=== PATIENT | male | born 1950 | race Caucasian/White ===

== ENCOUNTER 2018-06-08 12:51 | Emergency (ER) | payer MEDICARE ==
[2018-06-08] MEDS ORDERED: Metoprolol Tartrate 5 MG/5 ML VIAL ONE ×2 (13:02→13:18)
[2018-06-08] MEDS ORDERED: Aspirin Chewable 81 MG TAB ONE (13:02)
[2018-06-08 13:16] LABS: #Basophils 0.1 thou/uL (0.0-0.2); #Eosinphils 0.2 thou/uL (0.0-0.7); #Lymphocytes 1.9 thou/uL (1.20-3.40); #Monocytes 0.5 thou/uL (0.11-0.59); #Neutrophils 5.9 thou/uL (1.40-6.50); %Eosinophils 2.1 % (0.0-10.0); %Lymphocytes 22.2 % (21.0-51.0); %Monocytes 5.9 % (0.0-10.0); %Neutrophils 68.8 % (42.0-75.0); Hemoglobin 15.1 g/dL (14.0-18.0); Mean Corpuscular HGB CONC 33.6 g/dL (32.0-36.0); Mean Corpuscular Volume 89.3 fL (78.0-98.0); Mean Platelet Volume 7.6 fL (7.4-10.4); Platelet Count 262 thou/uL (130-400); RBC Distribution Width 11.6 % (11.5-14.5); Red Blood Cell (RBC) Count 5.04 mill/uL (4.70-6.10); White Blood Cell (WBC) Count 8.6 thou/uL (4.8-10.8)
[2018-06-08] MEDS ORDERED: Sodium Chloride 0.9% 1,000 ML ONE (13:23)
[2018-06-08 13:29] LABS: PTT 27.7 SEC (22.9-36.1); Prothrombin Time 13.3 SEC (12.0-14.7)
[2018-06-08 13:31] LABS: ALT (SGPT) 17 U/L (8-55); AST (SGOT) 19 U/L (5-34); Albumin 4.1 g/dL (3.4-4.8); Alkaline Phosphatase 75 U/L (40-150); Anion Gap 19 mmol/L (10-20); BUN (Urea Nitrogen) 17 mg/dL (8.4-25.7); Bilirubin, Total 0.6 mg/dL (0.2-1.2); CK (CPK) 136 U/L (30-200); Calc. Creatinine Clearance 0 mL/min (70-130); Calcium 9.6 mg/dL (7.8-10.44); Carbon Dioxide 18 mmol/L (23-31); Chloride 102 mmol/L (98-107); Estimated GFR-MDRD 64; Globulin 2.6 g/dL (2.4-3.5); Glucose 204 mg/dL (80-115); Magnesium 2.1 mg/dL (1.6-2.6); Potassium 4.2 mmol/L (3.5-5.1); Protein, Total 6.7 g/dL (5.8-8.1); Sodium 135 mmol/L (136-145)
[2018-06-08 13:32] LABS: CKMB 2.4 ng/mL (0-6.6)
--- NOTE | 2018-06-08 13:45 | RAD ---
PORTABLE CHEST ONE VIEW: 06/08/2018 1:12 p.m. HISTORY: Chest pain. FINDINGS: The heart size is borderline. There is elevation of the right hemidiaphragm. No focal areas of cons olidation, pneumothoraces, chandler pulmonary edema, or pleural effusions area seen. IMPRESSION: No radiographic evidence of acute cardiopulmonary process. POS: C
== END 2018-06-08 15:23 | disposition short-term general hospital (02) ==
LOC: MADERS 12:51
DX: I20.9 Angina pectoris, unspecified (principal); I47.1 Supraventricular tachycardia; I10 Essential (primary) hypertension
CPT/HCPCS: 71045; 80053; 82550; 82553; 83735; 83880; 84484; 85025; 85610; 85730; 93005; 94760; 96374; J7050

== ENCOUNTER 2019-04-20 10:01 | Outpatient (CLI) | payer MEDICARE ==
[2019-04-20 10:28] LABS: Cardiac Risk 5.5 (Less than 4.5)
[2019-04-20 17:58] LABS: Albumin (w/Testosterone Panel) 4.3 g/dL
[2019-04-20 18:24] LABS: Sex Hormone Binding Globulin 35.6 nmol/L (11-78); Testosterone, Free 81.9 pg/mL (47-244); Testosterone, Total 419.3 ng/dL (221-716)
== END 2019-04-20 10:02 | disposition home or self-care (01) ==
LOC: MADLABBHPM 10:01
PROVIDERS: ATTEND Family Medicine
DX: E78.2 Mixed hyperlipidemia (principal); R53.83 Other fatigue
CPT/HCPCS: 36415; 80061; 84270; 84403

== ENCOUNTER 2021-10-29 16:47 | Outpatient (CLI) | payer MEDICARE ==
[2021-10-29 17:24] LABS: #Basophils 0.1 thou/uL (0.0-0.2); #Eosinphils 0.4 thou/uL (0.0-0.7); #Lymphocytes 2.2 thou/uL (1.20-3.40); #Monocytes 0.9 thou/uL (0.11-0.59); %Eosinophils 3.9 % (0.0-10.0); %Lymphocytes 23.3 % (21.0-51.0); %Monocytes 9.1 % (0.0-10.0); %Neutrophils 62.7 % (42.0-75.0); Hemoglobin 15.4 g/dL (14.0-18.0); Mean Corpuscular HGB CONC 31.8 g/dL (32.0-36.0); Mean Corpuscular Hemoglobin 29.5 pg (27.0-31.0); Mean Corpuscular Volume 92.8 fL (78.0-98.0); Mean Platelet Volume 9.3 fL (7.4-10.4); Platelet Count 282 thou/uL (130-400); RBC Distribution Width 12.4 % (11.5-14.5); Red Blood Cell (RBC) Count 5.21 mill/uL (4.70-6.10); White Blood Cell (WBC) Count 9.6 thou/uL (4.8-10.8)
== END 2021-10-29 16:48 | disposition home or self-care (01) ==
LOC: MADLABSP 16:47
PROVIDERS: ATTEND Family Medicine
DX: I10 Essential (primary) hypertension (principal)
CPT/HCPCS: 36415; 85025

== ENCOUNTER 2022-03-23 14:48 | Outpatient (CLI) | payer MEDICARE | END 2022-03-23 14:49 | disposition home or self-care (01) | LOC: MADRAD 14:48 | PROVIDERS: ATTEND Internal Medicine | DX: I10 Essential (primary) hypertension (principal) | CPT/HCPCS: 71046 ==

== ENCOUNTER 2022-06-23 12:32 | Outpatient (CLI) | payer MEDICARE | END 2022-06-23 12:33 | disposition home or self-care (01) | LOC: MADRAD 12:32 | PROVIDERS: ATTEND Nurse Practitioner Family | DX: U07.1 COVID-19 (principal); F32.A Depression, unspecified; I10 Essential (primary) hypertension; R53.83 Other fatigue | CPT/HCPCS: 71046 ==